=== PATIENT | female | born 1995 | race Caucasian/White ===

== ENCOUNTER → 2021-07-29 09:16 | Outpatient (BNVA) | payer OTHER, SELFPAY | PROVIDERS: PCP Registered Nurse; Visit Provider Registered Nurse | DX: R53.83 Other fatigue (principal) | CPT/HCPCS: 84443; 85025 ==

== ENCOUNTER → 2022-03-10 10:17 | Outpatient (BNVA) | payer OTHER, SELFPAY | PROVIDERS: PCP Registered Nurse; Visit Provider Nurse Practitioner Women's Health | DX: Z01.419 Encounter for gynecological examination (general) (routine) without abnormal findings (principal); N92.0 Excessive and frequent menstruation with regular cycle | CPT/HCPCS: 88175 ==

== ENCOUNTER → 2023-11-28 14:46 | Outpatient (BNVA) | payer SELFPAY | PROVIDERS: PCP Nurse Practitioner; Visit Provider Nurse Practitioner | DX: R50.9 Fever, unspecified (principal) | CPT/HCPCS: 87426 ==

== ENCOUNTER 2024-07-26 09:08 | Outpatient (CLI) | payer MEDICAID, SELFPAY ==
--- NOTE | 2024-07-26 10:00 | NM_ITS ---
WS: [id number] NUCLEAR MEDICINE HIDA SCAN CLINICAL INFORMATION: R19.7 - Diarrhea, unspecified TECHNIQUE: Following intravenous administration of 7.7 mCi of technetium 99m mebrofenin, images of the abdomen were obtained over the course of 60 minutes. Next, gallbladder ejection fraction was determined by obtaining preprandial and one-hour postprandial images of the gallbladder following oral ingestion of Ensure. COMPARISON: None. FINDINGS: Normal hepatic uptake at 5 minutes. Normal hepatic excretion. Gallbladder is visualized by 90 minutes. No evidence of acute cholecystitis. Gallbladder ejection fraction 76% within normal limits. No evidence of chronic cholecystitis. Normal common bile duct and small bowel activity is visualized. NM/NM hepatobiliary w phar* [id number] IMPRESSION: Normal HIDA scan
== END 2024-07-26 09:09 | disposition home or self-care (01) ==
PROVIDERS: PCP Nurse Practitioner; Visit Provider Nurse Practitioner
DX: R19.7 Diarrhea, unspecified (principal); R10.9 Unspecified abdominal pain
CPT/HCPCS: 78227; A9537

== ENCOUNTER → 2024-08-29 09:56 | Outpatient (BNVA) | payer MEDICAID, SELFPAY | PROVIDERS: PCP Nurse Practitioner; Visit Provider Nurse Practitioner | DX: R19.7 Diarrhea, unspecified (principal); R10.9 Unspecified abdominal pain | CPT/HCPCS: 82785; 86001; 86003; 86008; 86364 ==

== ENCOUNTER → 2024-09-25 08:48 | Outpatient (BNVA) | payer MEDICAID, SELFPAY | PROVIDERS: PCP Nurse Practitioner; Visit Provider Nurse Practitioner | DX: M77.31 Calcaneal spur, right foot (principal) | CPT/HCPCS: 73630 ==

== ENCOUNTER → 2024-10-24 15:59 | Outpatient (BNVA) | payer MEDICAID, SELFPAY | PROVIDERS: PCP Nurse Practitioner; Visit Provider Nurse Practitioner | DX: M54.2 Cervicalgia (principal); M54.9 Dorsalgia, unspecified | CPT/HCPCS: 72040; 72072 ==

== ENCOUNTER → 2024-12-09 11:00 | Outpatient (BNVA) | payer MEDICAID, SELFPAY | PROVIDERS: PCP Nurse Practitioner; Visit Provider Nurse Practitioner | DX: R19.7 Diarrhea, unspecified (principal) | CPT/HCPCS: 82270; 87045; 87427; 87449; 87493 ==

== ENCOUNTER → 2025-03-25 12:38 | Outpatient (BNVA) | payer MEDICAID, SELFPAY | PROVIDERS: PCP Nurse Practitioner; Visit Provider Nurse Practitioner Women's Health | DX: Z12.4 Encounter for screening for malignant neoplasm of cervix (principal) | CPT/HCPCS: 88175 ==

== ENCOUNTER → 2025-04-24 11:15 | Outpatient (BNVA) | payer MEDICAID, SELFPAY | PROVIDERS: PCP Nurse Practitioner; Visit Provider Podiatrist Foot & Ankle Surgery | DX: M72.2 Plantar fascial fibromatosis (principal); M62.461 Contracture of muscle, right lower leg; G89.29 Other chronic pain | CPT/HCPCS: 99213 ==